=== PATIENT | female | born 1935 ===

== ENCOUNTER 2019-01-10 08:05 | Emergency (ER) | payer MEDICARE, OTHER ==
[2019-01-10 10:17] VITALS: BP 136/71
--- NOTE | 2019-01-10 10:38 | UC ---
Upper Extremity HPI - HPI Summary HPI Summary: 83-year-old woman comes in with a chief complaint of bilateral hand numbness and progressive left arm numbness and weakness and pain. Patient's been noting numbness in all of her fingers over the last several months that comes and goes. Over the last 4 evening she's been having progressive weakness numbness pain in the left arm starting distally moving proximally. Each evening it's worse during the day time it improves. Last night her left arm was weak and she had to hold it up using her right arm. The numbness and weakness includes all the fingers of hands. She does have some chronic neck pain problems. No change in vision or speech or facial or leg involvement. No complaint of any loss of bowel or bladder control. - History of Current Complaint Chief Complaint: UCUpperExtremity Stated Complaint: L ARM COMPLAINT Time Seen by Provider: 01/10/19 09:14 Pain Intensity: 6 - Allergies/Home Medications Allergies/Adverse Reactions: Allergies Allergy/AdvReac Type Severity Reaction Status Date / Time No Known Allergies Allergy Verified 01/10/19 08:19 Home Medications: Home Medications Atorvastatin* [Lipitor*] 10 mg PO DAILY 01/10/19 [History Confirmed 01/10/19] Cholecalciferol TAB* [Vitamin D TAB*] 1,000 unit PO DAILY 01/10/19 [History Confirmed 01/10/19] Meloxicam 7.5 mg PO DAILY 01/10/19 [History Confirmed 01/10/19] PMH/Surg Hx/FS Hx/Imm Hx Previously Healthy: Yes Endocrine History: Dyslipidemia - Surgical History Surgical History: Yes Surgery Procedure, Year, and Place: cataracts - Family History Known Family History: Positive: Non-Contributory - Social History Alcohol Use: Occasionally Substance Use Type: None Smoking Status (MU): Never Smoked Tobacco Review of Systems All Other Systems Reviewed And Are Negative: Yes Constitutional: Positive: Negative Skin: Positive: Negative Eyes: Positive: Negative ENT: Positive: Negative Respiratory: Positive: Negative Cardiovascular: Positive: Negative Gastrointestinal: Positive: Negative Genitourinary: Positive: Negative Motor: Positive: Weakness Neurovascular: Positive: Decreased Sensation Musculoskeletal: Positive: Myalgia Neurological: Positive: Weakness, Paresthesia, Numbness Psychological: Positive: Negative Is Patient Immunocompromised?: No Physical Exam Triage Information Reviewed: Yes Appearance: Well-Appearing, No Pain Distress, Well-Nourished Vital Signs: Initial Vital Signs Temp 97.9 F 01/10/19 08:16 Pulse 80 01/10/19 08:16 Resp 16 01/10/19 08:16 BP 137/79 01/10/19 08:16 Pulse Ox 100 01/10/19 08:16 Vital Signs Reviewed: Yes Eye Exam: Normal Eyes: Positive: Conjunctiva Clear, Other: - PERRLA/EOMI Neck exam: Normal Neck: Positive: Supple Respiratory: Positive: Lungs clear, Normal breath sounds, No respiratory distress Cardiovascular: Positive: RRR Musculoskeletal Exam: Normal Musculoskeletal: Positive: Strength Intact, ROM Intact Neurological: Positive: Other: - Patient reports decreased sensation to touch in the left hand and distal forearm. Normal capillary refill normal radial pulses bilaterally. Left hand medical assembler is slightly weaker than right hand medical assembler. Finger extension is normal bilaterally as is wrist flexion and extension. Elbows and shoulders also have full range of motion and full strength. There is no visual changes no facial droop no slurring of speech legs have full range of motion full-strength. Psychological: Positive: Normal Response To Family, Age Appropriate Behavior Skin Exam: Normal Upper Extremity Course/Dx - Course Course Of Treatment: Each evening the symptoms worsen. During the day time the patient's up moving around the symptoms improve. Overall his symptoms have been worsening each evening. There is a slight weakness in the left hand and reported slight decreased sensation in the left hand today. No other neurologic deficit found on exam or by history. I discussed the case with Sherrie Sky the neurosurgery physician assistant manager retail. The plan is to have the patient follow-up with neurosurgery tomorrow morning. If she worsens she should go to the emergency department. - Differential Dx/Diagnosis Provider Diagnosis: Cervical radiculopathy, Left arm weakness, Left arm pain Discharge - Sign-Out/Discharge Documenting (check all that apply): Patient Departure All imaging exams completed and their final reports reviewed: No Studies - Discharge Plan Condition: Stable Disposition: HOME Patient Education Materials: Paresthesia (ED), Cervical Radiculopathy (ED), Arm Pain (ED) Referrals: Sari Mott MD [Primary Care Provider] - Sherrie Sky PA [Physician Metal Buggy Operator] - Bob Collier MD [Medical Doctor] - Additional Instructions: FOLLOW UP WITH SHERRIE LUCAS IN NEUROSURGERY TOMORROW MORNING. CALL NEUROSURGERY TODAY TO SCHEDULE THE APPOINTMENT. GO TO THE EMERGENCY DEPARTMENT FOR ANY WORSENING OF YOUR CONDITION; WEAKNESS, NUMBNESS, PAIN, DIFFICULTY WITH VISION OR SPEECH, DIFFICULTY CONTROLLING BOWEL OR BLADDER OR QUESTIONS OR CONCERNS. - Billing Disposition and Condition Condition: STABLE Disposition: Home
== END 2019-01-10 10:50 | disposition home or self-care (01) ==
LOC: UCEAST 08:05
DX: M54.12 Radiculopathy, cervical region (principal); R53.1 Weakness; M79.602 Pain in left arm; G89.29 Other chronic pain
CPT/HCPCS: 99201; G0463

== ENCOUNTER 2019-01-29 10:10 | Day surgery (SDC) | payer MEDICARE, OTHER ==
--- NOTE | 2019-01-25 17:56 | HP ---
AMENDED REPORT NOW INCLUDES COSIGNER DESIGNATION PREOPERATIVE HISTORY AND PHYSICAL: DATE OF SURGERY/ADMISSION: 01/29/19 DATE OF OFFICE VISIT/ENCOUNTER: 01/24/19 ATTENDING SURGEON: Yuliana Cuevsa MD * (DICTATED BY LANCE HULL) PROCEDURES: Left wrist carpal tunnel release, flexor tenosynovectomy. CHIEF COMPLAINT: Numbness and tingling, left hand; pain, left wrist. HISTORY OF PRESENT ILLNESS: This is an 83-year-old female who has had significant pain in her left hand along with numbness and tingling in the hand. She has also had swelling and pain in her wrist on the volar aspect. The swelling in the wrist has been present for about 2 years and was never a problem until recently. About 3 weeks ago, she woke up during the night and her left arm was very painful from her shoulder all the way down to the hand. The pain in the shoulder to the elbow has resolved, but the pain in her hand remains along with numbness and tingling in her fingers. There was no specific injury that she recalls. She has no history of inflammatory arthropathies. She has been using meloxicam, but this has not been particularly helpful to relieve her symptoms. She was evaluated by Dr. Cuevas and found to have left carpal tunnel syndrome and flexor tenosynovitis. The patient has consented to proceed with surgical interventions for both of these problems. PAST MEDICAL HISTORY: 1. Hypercholesterolemia. 2. Osteoporosis. 3. Arthritis. 4. Parathyroidism. PAST SURGICAL HISTORY: Bilateral cataract removal. CURRENT MEDICATIONS: 1. Atorvastatin calcium 10 mg daily. 2. Meloxicam 7.5 mg 1 tab daily. 3. [id number] Tylenol p.r.n. ALLERGIES: No known drug allergies. FAMILY MEDICAL HISTORY: Noncontributory. 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 She is not nor has ever been a smoker. She denies recreational drug use. She drinks alcohol on occasion. REVIEW OF SYSTEMS: Negative for general, cephalic, cardiovascular, GI, , other musculoskeletal, integumentary, endocrine, neurologic, and hematologic symptoms. Infectious Disease: Negative for MRSA, hepatitis C, HIV. PHYSICAL EXAMINATION GENERAL: Well-developed, well-nourished 83-year-old female, in no acute distress. VITAL SIGNS: Height 5 feet 4 inches, weight 130 pounds. Pulse rate 64, blood pressure 124/60. HEENT: Normocephalic, atraumatic. Pupils are equal, round, and reactive to light and accommodation. Extraocular movements are intact. Throat is clear. NECK: Supple. No palpable lymph nodes. PULMONARY: Lungs are clear to auscultation bilaterally. No wheezes, rales, or rhonchi. CARDIOVASCULAR: Regular rate and rhythm. S1, S2. No murmurs, rubs, or gallops. No edema. ABDOMEN: Positive bowel sounds, soft, nontender. NEUROLOGICAL: Alert and oriented x3. Cranial nerves II through XII are intact. MUSCULOSKELETAL: On exam of her left upper extremity, she has a large area of swelling just proximal to the wrist crease on the left. It moves with range of motion of the fingers. It appears to be attached to her flexor tendon. She has decreased sensation in the median nerve distribution of both hands, much worse on the left than on the right. Negative Tinel sign at the ulnar nerve at the elbows. Positive Tinel sign at the median nerve of the wrist on the left. Weakness with some abduction and mild thenar wasting. IMPRESSION: Left wrist flexor tenosynovitis and carpal tunnel syndrome. PLAN: The patient is scheduled to undergo a left wrist carpal tunnel release and flexor tenosynovectomy with Dr. Cuevas on 01/29/19. She will return to the office 10 days postop for followup and suture removal. A prescription for Ultracet was e- scribed to the patient's pharmacy for postoperative pain management. LANCE HULL [id number]/[facility] #: [id number] FARHANA
[~2019-01-29 10:10] MED LIST: Buffered Lidocaine 1% SYRIN* 1 ML/SYRINGE INTRADERM ONE; Lactated Ringers 1000 ML Bag* 1,000 ML IV SCH
[2019-01-29] MEDS ORDERED: Propofol* 10 MG/ML 20 ML BTL ONE (11:50)
[2019-01-29] MEDS ORDERED: Lidocaine 2% PF * 5 ML VIAL ONE (11:50)
[2019-01-29] MEDS ORDERED: fentaNYL* 50 MCG/ML 2 ML VIAL (100 MCG VIAL) ONE (11:50)
[2019-01-29] MEDS ORDERED: Lidocaine 1% INJ* 10 MG/ML 30 ML SDV ONE (12:34)
[2019-01-29 13:48] VITALS: BP 128/80
--- NOTE | 2019-01-29 15:44 | OP ---
DATE OF OPERATION: 01/29/19 - [facility] DATE OF : 39 SURGEON: Yuliana Cuevas MD MANAGER SIMULATION: LANCE Borjas ANESTHESIA: Local MAC. PRE-OP DIAGNOSES: Flexor tenosynovitis of the left wrist and left carpal tunnel syndrome. POST-OP DIAGNOSES: Lipoma of the left wrist and left carpal tunnel syndrome. OPERATIVE PROCEDURE: Left carpal tunnel release and mass removal from the left wrist. ESTIMATED BLOOD LOSS: Zero. TOURNIQUET TIME: About 15 minutes. INDICATIONS FOR PROCEDURE: Sangeetha is an 83-year-old female who has developed increasing numbness and pain in her left hand consistent with carpal tunnel syndrome. She has a large swelling just proximal to her wrist flexion crease. This was thought to be tenosynovitis; however, intraoperatively, it appeared to be a lipoma, which was compressing and displacing the median nerve. DESCRIPTION OF PROCEDURE: The patient was brought to the operating room and was given a sedation anesthetic and a local infiltration of a total of 15 cc of 1% plain lidocaine. The skin of her left upper extremity was prepped and draped in the usual sterile fashion. The hand and forearm were exsanguinated and the tourniquet elevated to 250 mmHg. A longitudinal incision was made with zigzag across the distal wrist creases. It was then elevated and we dissected sharply through the subcutaneous tissue down to the transverse carpal ligament. The ligament was divided sharply with a knife and then more proximally with the scissors. The proximal skin flap was then elevated and we discovered a 4 x 2 cm lipoma attached to the flexor digitorum superficialis of the middle finger. It was displacing the median nerve. The lipoma was removed and sent for pathology. The wound was irrigated and the skin edges reapproximated with 4 -0 nylon suture. The wound was dressed with Xeroform, 4x4, Webril, and an Rip wrap. The patient tolerated the procedure well and was brought to the recovery room in good condition. [id number]/[facility] #: [id number] [facility]
== END 2019-01-29 13:44 | disposition home or self-care (01) ==
LOC: OREAST 10:10
PROVIDERS: ATTEND Orthopaedic Surgery
DX: G56.02 Carpal tunnel syndrome, left upper limb (principal); D17.22 Benign lipomatous neoplasm of skin and subcutaneous tissue of left arm; E78.00 Pure hypercholesterolemia, unspecified; M81.0 Age-related osteoporosis without current pathological fracture; M19.90 Unspecified osteoarthritis, unspecified site; E21.3 Hyperparathyroidism, unspecified
CPT/HCPCS: 88304; J2704; J3010